=== PATIENT | male | born 1980 | race Caucasian/White ===

== ENCOUNTER 2022-10-12 20:14 | Emergency (ER) | payer OTHER ==
[~2022-10-12] VITALS: Ht 188 cm; Wt 141.1 kg
[~2022-10-12 20:14] MED LIST: HYDACE5 PO; NAPR500 PO; RXHYDACE PO
[2022-10-12 20:17] VITALS: BP 153/95
[2022-10-12] MEDS ORDERED: TRAZ50 PO (20:46)
[2022-10-12] MEDS ORDERED: ATOR40TA PO (20:46)
[2022-10-12] MEDS ORDERED: Fenofibrate134 MG PO (20:47)
== END 2022-10-12 20:43 | disposition home or self-care (01) ==
LOC: ER 20:14
DX: S16.1XXA Strain of muscle, fascia and tendon at neck level, initial encounter (principal); S39.012A Strain of muscle, fascia and tendon of lower back, initial encounter; V89.2XXA Person injured in unspecified motor-vehicle accident, traffic, initial encounter
CPT/HCPCS: 99283

== ENCOUNTER → 2023-02-10 | Outpatient (CLI) | payer OTHER ==
[~2023-02-10] MED LIST changes: +ATOR40TA PO; +Fenofibrate134 MG PO; +TRAZ50 PO
[2023-02-10 09:25] LABS: BASOPHILS ABSOLUTE AUTO 0.05 K/mm3 (0.00-0.23); BASOPHILS PERCENT AUTO 1 % (0-2); EOSINOPHILS ABSOLUTE AUTO 0.02 K/mm3 (0.00-0.68); EOSINOPHILS PERCENT AUTO 0 % (0-6); Hematocrit 45.9 % (37.0-53.0); Hemoglobin 16.2 g/dL (13.5-17.5); IMMATURE GRAN ABSOLUTE AUTO 0.04 K/mm3 (0.00-0.10); IMMATURE GRAN PERCENT AUTO 0 % (0-1); LYMPHOCYTES ABSOLUTE AUTO 0.95 K/mm3 (0.84-5.20); LYMPHOCYTES PERCENT AUTO 9 % (21-46); MONOCYTES ABSOLUTE AUTO 0.41 K/mm3 (0.16-1.47); MONOCYTES PERCENT AUTO 4 % (4-13); Mean Corpuscular HGB 32.7 pg (26.0-34.0); Mean Corpuscular HGB Conc 35.3 g/dL (31.5-36.5); Mean Corpuscular Volume 93 fL (80-100); Mean Platelet Volume 8.8 fL (9.1-12.4); NEUTROPHILS ABSOLUTE AUTO 8.77 K/mm3 (1.96-9.15); NEUTROPHILS PERCENT AUTO 86 % (41-73); Platelet Count 421 K/mm3 (150-400); RDW Coefficient Variation 12.6 % (11.7-14.2); RDW Standard Deviation 42.4 fL (35.1-46.3); Red Blood Cell Count 4.96 M/mm3 (4.30-5.90); White Blood Cell Count 10.24 K/mm3 (4.00-11.30)
[2023-02-10 09:36] LABS: Bilirubin, Total 0.2 mg/dL (0.1-1.0); Bun/Creatinine Ratio 9.3 (12.0-20.0); Calcium, Blood 9.1 mg/dL (8.5-10.1); Creatinine, Blood 1.08 mg/dL (0.60-1.20); Globulin, Blood 3.9 g/dL (2.2-4.0); Potassium, Blood 3.8 mmol/L (3.5-5.5); Total Protein, Blood 7.9 g/dL (6.4-8.2)
== END ==
LOC: LAB SHORT 09:20
PROVIDERS: Physician Assistant
DX: N20.0 Calculus of kidney (principal)
CPT/HCPCS: 80053; 85025

== ENCOUNTER 2024-03-10 10:39 | Day surgery (SDC) | payer OTHER ==
[~2024-03-10] VITALS: Ht 188 cm; Wt 121.2 kg
[~2024-03-10 10:39] MED LIST changes: +Lactated Ringer's 1,000 ML IV ONE
[2024-03-10] MEDS ORDERED: CYCL10 (12:48)
[2024-03-10] MEDS ORDERED: Triamcinolone A15 G3 (12:49)
[2024-03-10] MEDS ORDERED: Adipex-P37.5 M1 (12:49)
[2024-03-10 13:11] VITALS: BP 124/70
[2024-03-10] MEDS ORDERED: Lactated Ringer's 1,000 ML IV ONE (13:58)
[2024-03-10] MEDS ORDERED: propofoL 50 ML IV ONE (14:15)
== END 2024-03-10 15:10 | disposition home or self-care (01) ==
LOC: ORSCSDS 10:39
PROVIDERS: Internal Medicine Gastroenterology
PROC: 0DBP8ZX Excision of Rectum, Via Natural or Artificial Opening Endoscopic, Diagnostic (ICD-10-PCS; principal; 2024-03-10 13:00)
DX: K92.1 Melena (principal); C20 Malignant neoplasm of rectum; G47.33 Obstructive sleep apnea (adult) (pediatric); E78.5 Hyperlipidemia, unspecified; E66.9 Obesity, unspecified; Z68.34 Body mass index [BMI] 34.0-34.9, adult; Z79.899 Other long term (current) drug therapy; R19.4 Change in bowel habit
CPT/HCPCS: 88305; J2704; J7120

== ENCOUNTER 2024-05-08 12:32 | Emergency (ER) | payer OTHER ==
[~2024-05-08] VITALS: Ht 188 cm; Wt 104.8 kg
[~2024-05-08 12:32] MED LIST changes: +Adipex-P37.5 M1; +CYCL10; -Lactated Ringer's 1,000 ML IV ONE; +Triamcinolone A15 G3
[2024-05-08 12:55] VITALS: BP 128/83
[2024-05-08 13:23] LABS: BASOPHILS ABSOLUTE AUTO 0.01 K/mm3 (0.00-0.23); BASOPHILS PERCENT AUTO 0 % (0-2); EOSINOPHILS ABSOLUTE AUTO 0.03 K/mm3 (0.00-0.68); EOSINOPHILS PERCENT AUTO 1 % (0-6); Hematocrit 25.5 % (37.0-53.0); Hemoglobin 7.9 g/dL (13.5-17.5); IMMATURE GRAN ABSOLUTE AUTO 0.03 K/mm3 (0.00-0.10); IMMATURE GRAN PERCENT AUTO 1 % (0-1); LYMPHOCYTES ABSOLUTE AUTO 0.33 K/mm3 (0.84-5.20); LYMPHOCYTES PERCENT AUTO 6 % (21-46); MONOCYTES ABSOLUTE AUTO 0.51 K/mm3 (0.16-1.47); MONOCYTES PERCENT AUTO 9 % (4-13); Mean Corpuscular HGB 26.4 pg (26.0-34.0); Mean Corpuscular Volume 85 fL (80-100); Mean Platelet Volume 8.2 fL (9.1-12.4); NEUTROPHILS ABSOLUTE AUTO 5.02 K/mm3 (1.96-9.15); NEUTROPHILS PERCENT AUTO 85 % (41-73); Platelet Count 619 K/mm3 (150-400); RDW Coefficient Variation 22.4 % (11.7-14.2); RDW Standard Deviation 66.5 fL (35.1-46.3); Red Blood Cell Count 2.99 M/mm3 (4.30-5.90); White Blood Cell Count 5.93 K/mm3 (4.00-11.30)
[2024-05-08 13:43] LABS: D-Dimer, Quantitative 1.32 mg/L FEU (0.00-0.52); International Normalized Ratio 1.12; Prothrombin Time Results 11.9 Sec (9.7-11.5)
[2024-05-08 14:05] LABS: Albumin/Globulin Ratio 0.3 (0.8-1.8); Bilirubin, Direct 0.5 mg/dL (0.0-0.3); Bun/Creatinine Ratio 13.8 (12.0-20.0); Calcium, Blood 8.6 mg/dL (8.5-10.1); Creatinine, Blood 0.58 mg/dL (0.60-1.20); Globulin, Blood 5.8 g/dL (2.2-4.0); Potassium, Blood 3.7 mmol/L (3.5-5.5); Total Protein, Blood 7.8 g/dL (6.4-8.2)
[2024-05-08 14:59] LABS: Influenza A, PCR NEGATIVE (NEGATIVE); Influenza B, PCR NEGATIVE (NEGATIVE); Resp Syncytial Virus, PCR NEGATIVE (NEGATIVE); SARS-Cov-2 (COVID-19) PCR, MMC NEGATIVE (NEGATIVE)
[2024-05-08] MEDS ORDERED: NS 1,000 ML IV SCH ×2 (16:00→16:50)
[2024-05-08 17:16] LABS: Source, Urine Clean Catch
[2024-05-08 17:19] LABS: Appearance, Urine Clear (Clear); Bilirubin, Urine Neg (Neg); Blood, Urine Neg (Neg); Color, Urine Amber (P-Yellow); Glucose Qualitative, Urine Neg (Neg); Ketones, Urine Neg (Neg); Leukocyte Esterase, Urine 1+ (Neg); Nitrite, Urine Neg (Neg); Protein, Urine 2+ (Neg); Specific Gravity, Urine 1.015 (1.003-1.022); Urobilinogen, Urine 3+ (Normal)
[2024-05-08 17:25] LABS: Bacteria Rare /hpf; Mucus Light (0-Heavy); Red Blood Cells, Urine 0-2 /hpf (0-2); Squamous Epithelial Cells Not Seen /hpf (Few)
== END 2024-05-08 17:55 | disposition home or self-care (01) ==
LOC: ER 12:32
PROVIDERS: Physician Assistant; Student in an Organized Health Care Education/Training Program
DX: C20 Malignant neoplasm of rectum (principal); D64.9 Anemia, unspecified; R50.9 Fever, unspecified; Z79.02 Long term (current) use of antithrombotics/antiplatelets; Z79.899 Other long term (current) drug therapy; Z79.84 Long term (current) use of oral hypoglycemic drugs; Z79.52 Long term (current) use of systemic steroids
CPT/HCPCS: 0241U; 80053; 81001; 82248; 85025; 85379; 85384; 85610; 85730; 87086; 96360; 99283-25; J7030

== ENCOUNTER → 2024-05-15 | Outpatient (CLI) | payer OTHER ==
[2024-05-15 14:29] LABS: Albumin, Blood 2.3 g/dL (3.4-5.0); Albumin/Globulin Ratio 0.5 (0.8-1.8); Bilirubin, Total 0.5 mg/dL (0.1-1.0); Bun/Creatinine Ratio 15.8 (12.0-20.0); Calcium, Blood 8.5 mg/dL (8.5-10.1); Creatinine, Blood 0.51 mg/dL (0.60-1.20); Globulin, Blood 5.1 g/dL (2.2-4.0); Potassium, Blood 3.6 mmol/L (3.5-5.5); Total Protein, Blood 7.4 g/dL (6.4-8.2)
[2024-05-15 14:31] LABS: BASOPHILS ABSOLUTE AUTO 0.02 K/mm3 (0.00-0.23); BASOPHILS PERCENT AUTO 1 % (0-2); EOSINOPHILS ABSOLUTE AUTO 0.07 K/mm3 (0.00-0.68); EOSINOPHILS PERCENT AUTO 2 % (0-6); Hematocrit 27.7 % (37.0-53.0); Hemoglobin 8.4 g/dL (13.5-17.5); IMMATURE GRAN ABSOLUTE AUTO 0.01 K/mm3 (0.00-0.10); IMMATURE GRAN PERCENT AUTO 0 % (0-1); LYMPHOCYTES PERCENT AUTO 9 % (21-46); MONOCYTES ABSOLUTE AUTO 0.41 K/mm3 (0.16-1.47); MONOCYTES PERCENT AUTO 12 % (4-13); Mean Corpuscular HGB 27.3 pg (26.0-34.0); Mean Corpuscular HGB Conc 30.3 g/dL (31.5-36.5); Mean Corpuscular Volume 90 fL (80-100); Mean Platelet Volume 8.1 fL (9.1-12.4); NEUTROPHILS PERCENT AUTO 77 % (41-73); Platelet Count 518 K/mm3 (150-400); RDW Coefficient Variation 23.6 % (11.7-14.2); RDW Standard Deviation 72.7 fL (35.1-46.3); Red Blood Cell Count 3.08 M/mm3 (4.30-5.90); White Blood Cell Count 3.51 K/mm3 (4.00-11.30)
== END | disposition home or self-care (01) ==
LOC: LAB 12:30 → LAB SHORT 12:30
PROVIDERS: Internal Medicine Hematology & Oncology
DX: C20 Malignant neoplasm of rectum (principal)
CPT/HCPCS: 80053; 85025

== ENCOUNTER 2024-06-04 16:51 | Observation (INO) | payer OTHER ==
[~2024-06-04] VITALS: Ht 188 cm; Wt 107.2 kg
[~2024-06-04 16:51] MED LIST changes: +Enoxaparin 40 MG/0.4 ML SYR SC SCH
[2024-06-04] MEDS ORDERED: NS 1,000 ML IV SCH (17:20)
[2024-06-04] MEDS ORDERED: Morphine Sulfate 4 MG/1 ML Injection IV ONE (17:20)
[2024-06-04 18:24] LABS: BASOPHILS ABSOLUTE AUTO 0.02 K/mm3 (0.00-0.23); BASOPHILS PERCENT AUTO 0 % (0-2); EOSINOPHILS ABSOLUTE AUTO 0.09 K/mm3 (0.00-0.68); EOSINOPHILS PERCENT AUTO 2 % (0-6); Hemoglobin 10.8 g/dL (13.5-17.5); IMMATURE GRAN ABSOLUTE AUTO 0.02 K/mm3 (0.00-0.10); IMMATURE GRAN PERCENT AUTO 0 % (0-1); LYMPHOCYTES ABSOLUTE AUTO 0.68 K/mm3 (0.84-5.20); LYMPHOCYTES PERCENT AUTO 14 % (21-46); MONOCYTES ABSOLUTE AUTO 0.35 K/mm3 (0.16-1.47); MONOCYTES PERCENT AUTO 7 % (4-13); Mean Corpuscular HGB 29.8 pg (26.0-34.0); Mean Corpuscular HGB Conc 31.8 g/dL (31.5-36.5); Mean Corpuscular Volume 94 fL (80-100); Mean Platelet Volume 7.9 fL (9.1-12.4); NEUTROPHILS ABSOLUTE AUTO 3.75 K/mm3 (1.96-9.15); NEUTROPHILS PERCENT AUTO 77 % (41-73); Platelet Count 584 K/mm3 (150-400); RDW Coefficient Variation 23.6 % (11.7-14.2); RDW Standard Deviation 79.5 fL (35.1-46.3); Red Blood Cell Count 3.62 M/mm3 (4.30-5.90); White Blood Cell Count 4.91 K/mm3 (4.00-11.30)
[2024-06-04 18:45] LABS: Albumin, Blood 3.4 g/dL (3.4-5.0); Albumin/Globulin Ratio 0.6 (0.8-1.8); Bilirubin, Total 0.5 mg/dL (0.1-1.0); Bun/Creatinine Ratio 26.6 (12.0-20.0); Calcium, Blood 9.4 mg/dL (8.5-10.1); Creatinine, Blood 0.56 mg/dL (0.60-1.20); Globulin, Blood 5.6 g/dL (2.2-4.0); Potassium, Blood 3.7 mmol/L (3.5-5.5)
[2024-06-04 22:10] VITALS: BP 135/85
[2024-06-04] MEDS ORDERED: FentaNYL Citrate 50 MCG/ML 2 ML Injection IV PRN (23:20)
[2024-06-04] MEDS ORDERED: FLU VACC TS2024-25(6MOS UP)/PF 45 MCG/0.5 ML SYRINGE IM ONE (23:20)
[2024-06-04] MEDS ORDERED: Ondansetron HCl 2 MG / ML 2ML Vial IV PRN (23:20)
[2024-06-04] MEDS ORDERED: NS 1,000 ML IV ONE (23:20)
[2024-06-05 04:18] LABS: BASOPHILS ABSOLUTE AUTO 0.03 K/mm3 (0.00-0.23); BASOPHILS PERCENT AUTO 1 % (0-2); EOSINOPHILS ABSOLUTE AUTO 0.14 K/mm3 (0.00-0.68); EOSINOPHILS PERCENT AUTO 5 % (0-6); Hematocrit 28.2 % (37.0-53.0); IMMATURE GRAN ABSOLUTE AUTO 0.01 K/mm3 (0.00-0.10); IMMATURE GRAN PERCENT AUTO 0 % (0-1); LYMPHOCYTES ABSOLUTE AUTO 0.73 K/mm3 (0.84-5.20); LYMPHOCYTES PERCENT AUTO 25 % (21-46); MONOCYTES PERCENT AUTO 14 % (4-13); Mean Corpuscular HGB Conc 31.9 g/dL (31.5-36.5); Mean Corpuscular Volume 94 fL (80-100); NEUTROPHILS ABSOLUTE AUTO 1.63 K/mm3 (1.96-9.15); NEUTROPHILS PERCENT AUTO 56 % (41-73); Platelet Count 495 K/mm3 (150-400); RDW Coefficient Variation 23.8 % (11.7-14.2); RDW Standard Deviation 79.5 fL (35.1-46.3); White Blood Cell Count 2.94 K/mm3 (4.00-11.30)
[2024-06-05 04:39] VITALS: BP 118/72
[2024-06-05 04:40] LABS: Albumin, Blood 2.7 g/dL (3.4-5.0); Albumin/Globulin Ratio 0.6 (0.8-1.8); Bilirubin, Total 0.5 mg/dL (0.1-1.0); Bun/Creatinine Ratio 14.5 (12.0-20.0); Calcium, Blood 8.4 mg/dL (8.5-10.1); Creatinine, Blood 0.62 mg/dL (0.60-1.20); Globulin, Blood 4.5 g/dL (2.2-4.0); Potassium, Blood 3.2 mmol/L (3.5-5.5); Total Protein, Blood 7.2 g/dL (6.4-8.2)
--- NOTE | 2024-06-05 06:15 | NUR ---
PT SLEPT MOST OF THE NIGHT,PT UP INDEPENDENTLY TO GO TO THE TOILET TO VOID.NO OUTPUT FROM OSTOMY.PT DENIES NAUSEA,DENIES PAIN.CALL LIGHT AND PT'S ITEMS WITHIN REACH.WILL GIVE REPORT TO DAYSHIFT NURSE FOR CONTINUITY OF CARE.
[2024-06-05] MEDS ORDERED: Potassium Chl 20MEQ/Water100ML 100 ML IV SCH (06:45)
[2024-06-05 08:32] VITALS: BP 119/72
--- NOTE | 2024-06-05 08:50 | NUR ---
[place] of care: Alert & oriented. In NSR in 70-90s. Blood pressures stable. On room air with stable oxygen saturations. No complaints of abdominal pain, nausea or vomiting. Tolerating clear liquids. States he believes he is starting to have some output from colostomy. Voiding. PIV in place. Will continue to monitor.
[2024-06-05] MEDS ORDERED: Potassium Chloride 20 MEQ TabCR PO ONE (09:35)
[2024-06-05 12:01] VITALS: BP 124/77
[2024-06-05 15:45] VITALS: BP 105/66
[2024-06-05 16:51] VITALS: BP 120/74
--- NOTE | 2024-06-05 16:52 | NUR ---
Discharged home with paperwork. All questions addressed. Education provided to patient & mom. Vital signs stable.
[2024-06-05] MEDS ORDERED: TraZODone HCl 50 MG Tab PO SCH (21:00)
== END 2024-06-05 18:01 | disposition home or self-care (01) ==
LOC: ER 16:51 → MEDS 16:52 → ER 16:52 → MEDS 16:53 → PCU 16:53 → MEDS 22:08 → PCU 22:08
PROVIDERS: Student in an Organized Health Care Education/Training Program; ADMIT Internal Medicine
DX: K56.7 Ileus, unspecified (principal); C20 Malignant neoplasm of rectum; E87.6 Hypokalemia; G47.00 Insomnia, unspecified; E78.00 Pure hypercholesterolemia, unspecified
CPT/HCPCS: 36415; 74177; 76705; 80053; 83690; 83880; 85025; 93005; 93010; 96361; 96374; 96375; 96376; 99285-25; A9270; G0378; J2270; J3480; J7030; Q9967

== ENCOUNTER 2024-06-20 08:50 | Day surgery (SDC) | payer OTHER ==
[2024-06-20] VITALS (11 sets, daily range): BP systolic 115–132; BP diastolic 71–84
[~2024-06-20] VITALS: Ht 182.9 cm; Wt 111.7 kg
[~2024-06-20 08:50] MED LIST changes: +CAPE500; +CeFAZolin Sodium 2,000 MG in NS 100 ML IV SCH; +Dexamethasone Sod Phos 10 MG/ML 1ML VIAL ONE; -Enoxaparin 40 MG/0.4 ML SYR SC SCH; +Lactated Ringer's 1,000 ML IV SCH; +OXYC10ER PO; +Ondansetron HCl 2 MG / ML 2ML Vial ONE; +[UNRECOGNIZED DRUG - OTHER]
[2024-06-20] MEDS ORDERED: propofoL 20 ML IV ONE (10:33)
[2024-06-20] MEDS ORDERED: Metoclopramide HCl 5MG / ML 2ML Vial ONE (10:40)
[2024-06-20] MEDS ORDERED: Esmolol HCL 10 MG/ML 10ML VIAL ONE (10:48)
[2024-06-20] MEDS ORDERED: Lidocaine HCl 1% 30 ML SDV ONE (11:03)
[2024-06-20] MEDS ORDERED: FentaNYL Citrate 50 MCG/ML 2 ML Injection ONE ×2 (11:27→12:36)
[2024-06-20] MEDS ORDERED: Midazolam HCl 1MG / ML 2ML Vial ONE (11:28)
[2024-06-20] MEDS ORDERED: Glycopyrrolate 0.2 MG/ML 5ML VIAL ONE (11:44)
[2024-06-20] MEDS ORDERED: Labetalol HCL 5 MG/ML 4ML Injection (Single Dose) IV PRN (12:25)
[2024-06-20] MEDS ORDERED: Metoclopramide HCl 5MG / ML 2ML Vial IV PRN (12:25)
[2024-06-20] MEDS ORDERED: ePHEDrine Sulfate 50 MG/ML 1ML Injection IV PRN (12:30)
[2024-06-20] MEDS ORDERED: Atropine Sulfate 0.1 MG/ML 10ML SYR IV PRN (12:30)
[2024-06-20] MEDS ORDERED: HYDROmorphone HCl/Pf 1MG SYR IV PRN ×2 (12:30)
[2024-06-20] MEDS ORDERED: OxyCODONE 5 mg/Acetamin 325 mg TABLET PO PRN (12:30)
[2024-06-20] MEDS ORDERED: FentaNYL Citrate 50 MCG/ML 2 ML Injection IV PRN (12:30)
[2024-06-20] MEDS ORDERED: Ketorolac Tromethamine 30mg Vial IV PRN (12:35)
--- NOTE | 2024-06-20 13:45 | NUR ---
DISCHARGE NOTE: Discharge instructions reviewed with patient. Patient verbalizes understanding. Copy given to patient to take home. Dressing to procedure site clean, dry, intact with no visible drainage, swelling, erythema or bruising noted. Patient States Post-Procedure ride home has been arranged. Patient up to Ambulate independently. Gait steady. Discharged via wheelchair to private car for ride home. ALL Pt BELONGINGS RETURNED TO Pt ON DISCHARGE, PHONE RETURNED TO Pt.
--- NOTE | 2024-06-20 13:58 | NUR ---
ASSUMED CARE OF PATEINT APPROXIMATLY 1300 FROM Juanita. STUDENT NURSE INVOLVED IN CARE.
== END 2024-06-20 22:58 | disposition home or self-care (01) ==
LOC: ORSCMMR 08:50 → ORD 10:15 → ORSCMMR 22:58
PROVIDERS: Surgery
PROC: B543ZZA Ultrasonography of Right Jugular Veins, Guidance (ICD-10-PCS; principal; 2024-06-20 10:15)
PROC: 0JH63WZ Insertion of Totally Implantable Vascular Access Device into Chest Subcutaneous Tissue and Fascia, Percutaneous Approach (ICD-10-PCS; principal; 2024-06-20 10:15)
PROC: 05HM33Z Insertion of Infusion Device into Right Internal Jugular Vein, Percutaneous Approach (ICD-10-PCS; principal; 2024-06-20 10:15)
DX: C20 Malignant neoplasm of rectum (principal); E78.5 Hyperlipidemia, unspecified; G47.33 Obstructive sleep apnea (adult) (pediatric); E66.9 Obesity, unspecified; Z68.33 Body mass index [BMI] 33.0-33.9, adult; Z79.899 Other long term (current) drug therapy
CPT/HCPCS: 77001; A9270; C1788; J0690; J1100; J1642; J2250; J2405; J2704; J2765; J3010; J7120